=== PATIENT | male | born 1960 | race Caucasian/White ===

== ENCOUNTER 2019-11-02 02:14 | Emergency (ER) | payer OTHER, SELFPAY ==
[2019-11-02 02:16] VITALS: BP 172/94; PULSE 60; RESP 14; TEMP 36.2; O2SAT 94
[2019-11-02] MEDS: KETOROLAC 30 MG/ML VIAL (*BKC) IV PUSH (02:49)
--- NOTE | 2019-11-02 04:02 | ECG_ITS ---
Measurements Intervals [place] Rate: 53 P: -27 [place]: 144 QRS: -21 QRSD: 117 T: 29 QT: 434 QTc: 410 Interpretive Statements SINUS BRADYCARDIA INTRAVENTRICULAR CONDUCTION DELAY DELAYED PRECORDIAL R/S TRANSITION BASELINE ARTIFACT- I, II BORDERLINE ECG Electronically Signed On 11-02-2019 7:02:33 CDT by Socrates Fritz D.O.
--- NOTE | 2019-11-02 04:37 | ED.GENADULT ---
HPI - General Adult General Chief complaint: Extremity Injury, Upper Stated complaint: Left shoulder Time Seen by Provider: 11/02/19 02:32 History of Present Illness HPI narrative: Patient is a 58-year-old male who presents ER with muscle cramps and aches to his left trapezius and cervical paraspinal musculature. Reports has been having this intermittently over the last couple weeks. He has been going to a chiropractor for adjustments. Occasionally will get some tingling that goes down his left arm. No exertional component to it. Today he reports he is having really sharp cramps when he is driving home from work. He worked a 16-hour shift where he did not drink much water as were gone outside. No known trauma. Range of motion intact. No chest pain or chest pressure. Related Data Allergies Allergy/AdvReac Type Severity Reaction Status Date / Time No Known Allergies Allergy Verified 11/02/19 02:23 Review of Systems Review of Systems: All systems reviewed & are unremarkable except as noted in HPI and below Constitutional: Constitutional: Denies chills, Denies fever(s) and Denies weakness Cardiovascular: Cardiovascular: Denies chest pain and Reports radiating jaw, neck or arm pain Respiratory: Respiratory: Denies cough, Denies dyspnea and Denies wheezing Musculoskeletal: Musculoskeletal: Denies arthralgias, Denies joint swelling and Reports muscle cramps Neurologic: Denies focal weakness and Reports numbness PMFSH Past Medical History Medical History (Updated 11/02/19 @ 04:42 by Kevin Montanez MD) No pertinent past medical history Surgical History Surgical History (Updated 11/02/19 @ 04:39 by Kevin Montanez MD) Amputated finger Social History Social History (Updated 11/02/19 @ 04:39 by Kevin Montanez MD) Smoking status: Never smoker Gender identity (if verbalized by the patient): Male Exam Narrative: Exam Narrative: GENERAL: Well-appearing, well-nourished, and in no acute distress. HEAD: Normocephalic, atraumatic. ENT: Mucous membranes moist. NECK: Supple. Mild paraspinal muscular tenderness left side of near C2. Mild trapezius muscle tenderness. CHEST: Clear to auscultation. No respiratory distress. HEART: Regular rate and rhythm. Normal peripheral pulses. EXTREMITIES: Normal range of motion of the right upper extremity. SKIN: Warm, dry, no rash. NEURO: No focal deficits. Alert and oriented x3. Course Course Emergency Course: Pain mildly improved with Toradol and Valium. He has been using ibuprofen at home. Recommend continued anti-inflammatories and will add on a muscle relaxer prescription. He reports his pains are worse on Sundays when he works as a long shift. Suspect is worsened today due to the fact that he did not have much to drink. Encourage hydration at home as well. Vital Signs Vital signs: Vital Signs Temperature 97.2 F L 11/02/19 02:16 Pulse Rate 60 11/02/19 02:16 Respiratory Rate 14 11/02/19 02:16 Blood Pressure 172/94 H 11/02/19 02:16 Pulse Oximetry 94 11/02/19 02:16 Temperature 97.2 F L 11/02/19 02:16 Pulse Rate 60 11/02/19 02:16 Respiratory Rate 14 11/02/19 02:16 Blood Pressure 172/94 H 11/02/19 02:16 Pulse Oximetry 94 11/02/19 02:16 Medical Decision Making Vital Signs Vital Signs: Vital Signs Temperature 97.2 F L 11/02/19 02:16 Pulse Rate 60 11/02/19 02:16 Respiratory Rate 14 11/02/19 02:16 Blood Pressure 172/94 H 11/02/19 02:16 Pulse Oximetry 94 11/02/19 02:16 Temperature 97.2 F L 11/02/19 02:16 Pulse Rate 60 11/02/19 02:16 Respiratory Rate 14 11/02/19 02:16 Blood Pressure 172/94 H 11/02/19 02:16 Pulse Oximetry 94 11/02/19 02:16 ECG Data EKG #1: ECG completion date: 11/02/19 ECG completion time: 04:00 EKG Interpretation: bradycardia (53), sinus rhythm, no ectopy, normal QRS, normal QT and left axis Discharge Plan Discharge Clinical Impression: Muscle
[2019-11-02 04:58] VITALS: BP 146/84; PULSE 56; RESP 18; O2SAT 97
== END 2019-11-02 04:50 | disposition home or self-care (01) ==
PROVIDERS: Emergency Provider Emergency Medicine; PCP Emergency Medicine
DX: M62.838 Other muscle spasm (principal); Z89.029 Acquired absence of unspecified finger(s); R00.1 Bradycardia, unspecified; I45.9 Conduction disorder, unspecified
CPT/HCPCS: 93005; 96374; 96375; 99284; J1885; J3360

== ENCOUNTER 2019-11-07 08:15 | Emergency (ER) | payer OTHER, SELFPAY ==
[2019-11-07 08:27] VITALS: BP 135/82; PULSE 57; RESP 16; TEMP 36.2; O2SAT 100
--- NOTE | 2019-11-07 08:33 | ED.GENADULT ---
HPI - General Adult General Chief complaint: Neck Pain/Injury Stated complaint: Nerve pain, upper body Time Seen by Provider: 11/07/19 08:33 Source: patient Mode of arrival: ambulatory Limitations: no limitations History of Present Illness HPI narrative: 58-year-old male patient presents to the [facility] with complaints of left-sided neck pain. Patient states he he was seen at [facility] last Saturday for similar pain in which he was given some muscle relaxants and encouraged to take [id number] NSAIDs. Patient states that he did call his doctor on Saturday about the pain and he prescribed him a 3-day course of steroids and some Percocet for the pain. Patient states that the pain medicine that they have been giving him is not helped and continues to have pain. Patient denies any numbness or tingling down the arm, or lower extremities. Denies any loss of bowel or bladder control. Denies any specific injury to the neck that he is aware of. Related Data Allergies Allergy/AdvReac Type Severity Reaction Status Date / Time No Known Allergies Allergy Verified 11/02/19 02:23 Review of Systems Review of Systems: Narrative: CONSTITUTIONAL: Denies fever, chills, or sweats. EYES: Denies visual changes, redness, or discharge. ENT: Denies rhinorrhea, congestion, sore throat, or otalgia. CARDIOVASCULAR: Denies chest pain, palpitations, or edema. RESPIRATORY: Denies cough or dyspnea. GASTROINTESTINAL: Denies abdominal pain, nausea, vomiting, or diarrhea. GENITOURINARY: Denies dysuria or hematuria. SKIN: Denies rash or itching. MUSCULOSKELETAL: Denies back pain, joint pain, or myalgia. Positive left-sided neck pain x1 week NEUROLOGIC: Denies headache, numbness, or weakness. PSYCHIATRIC: Denies anxiety or depression. PMFSH Past Medical History Medical History (Updated 11/07/19 @ 08:44 by ALICE Galaviz) No pertinent past medical history Ocular melanoma Left Surgical History Surgical History (Updated 11/02/19 @ 04:39 by Kevin Montanez MD) Amputated finger Social History Social History (Updated 11/02/19 @ 04:39 by Kevin Montanez MD) Smoking status: Never smoker Gender identity (if verbalized by the patient): Male Exam Narrative: Exam Narrative: GENERAL: Well-appearing, well-nourished, and in no acute distress. HEAD: Normocephalic, atraumatic. EYES: PERRLA and EOMI. ENT: Nares clear, no rhinorrhea or epistaxis. Mucous membranes moist. NECK: Supple, no lymphadenopathy. No surface trauma, no soft tissue or muscle tenderness or spasm noted. Trachea midline. No subq emphysema or crepitus. No sarbjit tenderness, step-offs or deformity to firm Palpation at posterior midline. FROM without limitation or pain, normal flexion, extension,Lateral bending, rotation, and axial load. Patient has specific pain on palpation to the top of the left shoulder in the middle that extends upward towards the left lateral neck. Patient does have excellent range of motion noted CHEST: Clear to auscultation. No respiratory distress. HEART: Regular rate and rhythm. No murmur heard. Normal peripheral pulses. ABDOMEN: Soft, nontender, nondistended, normal active bowel sounds. EXTREMITIES: Normal range of motion. No edema. SKIN: Warm, dry, no rash. NEURO: Alert and oriented ?-4, GCS 15. Cranial nerves II through XII grossly intact. No focal neurological deficits. Normal muscle strength and tone. Normal deep tendon reflexes. Negative Babinski, normal finger to nose coordination he had normal heel to santana glide. Speech is clear. Normal gait. Negative Romberg and no pronator drift Course Vital Signs Vital signs: Vital Signs Temperature 36.2 C L 11/07/19 08:27 Pulse Rate 57 L 11/07/19 08:27 Respiratory Rate 16 11/07/19 08:27 Blood Pressure 135/82 11/07/19 08:27 Pulse Oximetry 100 11/07/19 08:27 Temperature 36.2 C L 11/07/19 08:27 Pulse Rate 57 L 11/07/19 08:27 Respiratory Rate 16 11/07/19 08:27 Blood Pressure 1
== END 2019-11-07 08:55 | disposition home or self-care (01) ==
PROVIDERS: Emergency Provider Nurse Practitioner Family; PCP Emergency Medicine
DX: S16.1XXA Strain of muscle, fascia and tendon at neck level, initial encounter (principal); X58.XXXA Exposure to other specified factors, initial encounter; Z85.840 Personal history of malignant neoplasm of eye
CPT/HCPCS: 99213; G0463

== ENCOUNTER 2024-06-12 07:59 | Outpatient (CLI) | payer OTHER, SELFPAY ==
--- NOTE | ~2024-06-12 | MR_ITS ---
MRI of the left knee Clinical history: Pain Technique: Coronal proton density and proton density-weighted images, sagittal proton-density and T2 fat-sat images, and axial proton-density fat-saturated images were acquired. Findings: The anterior and posterior cruciate ligaments are intact. Medial collateral ligament and th e lateral collateral ligament complex are intact. Popliteus tendon is intact. Medial and lateral menisci are intact, without evidence of tear. There is mild to moderate chondromalacia along the lateral patellar facet extending to the apex, with focal areas of subchondral cystic change present. There is advanced chondromalacia of the femoral tr ochlea at the central to lateral aspect inferiorly, with subchondral cystic change present. Articular cartilage in the medial and lateral compartments is well preserved. Extensor mechanism is intact. No significant joint effusion or Cuba's cyst. Impression: Degenerative change of the patellofemoral compartment, as detailed above. Reviewed, dictated and finalized at [facility]. Impression: Degenerative change of the patellofemoral compartment, as detailed above.
--- NOTE | ~2024-06-12 | MR_ITS ---
MRI of the right hip Clinical history: Pain Technique: Coronal T1-weighted, T2-weighted, and proton-density fat-sat images, and axial T1-weighted and proton-density fat-sat images were acquired through the pelvis. Coronal T2-weighted images and c oronal, axial, and sagittal proton-density fat-sat images were acquired through the right hip. Findings: There is no fracture or avascular necrosis of either hip. No suspicious marrow edema or oth er suspicious marrow signal seen in the visualized osseous structures. There is diffuse moderate hillary dromalacia of both hip joints. There is focal subchondral cystic change in the right acetabulum and s uperolateral right femoral head. No joint effusion. No definite acetabular labral tear. Because musculature about the pelvis and right hip is intact. No muscle atrophy or edema. Visualized tendons are intact. No soft tissue mass or fluid collection. No evidence for bursitis. IMPRESSION: Moderate degenerative change of both hip joints, right worse than left. Reviewed, dictated and finalized at location .
== END 2024-06-12 08:00 | disposition home or self-care (01) ==
LOC: MICIMG 07:59
PROVIDERS: PCP Emergency Medicine; Visit Provider Emergency Medicine
DX: M16.0 Bilateral primary osteoarthritis of hip (principal); M17.12 Unilateral primary osteoarthritis, left knee
CPT/HCPCS: 73721

== ENCOUNTER 2024-09-21 01:12 | Day surgery (SDC) | payer OTHER, SELFPAY ==
[2024-09-07 15:36] VITALS: BMI 27.6
--- OUTSIDE RECORDS SUMMARY | 2024-09-21 01:15 | XMS_ITS | Continuity of Care Document ---
Author Organization [facility] Address [address] [place] [address] Phone Care Team Providers Care Appliquer Name Role Phone Dio Loomis MD Unavailable Unavailable Allergies, Adverse Reactions, Alerts Substance Reaction Status Criticality No Known Drug Allergies Active No I nformation Procedures Procedure Date Rating Letter Rating Letter Office/outpatient visit,est, mod 2011 Supplemental Report Office/outpatient visit,est, mod 2011 Supplemental Report Office/outpatient visit,est, low 2011 Supplemental Report Office/outpatient visit,est, low 2011 Inject sngl/traffic and transport planner trig pt 3+ msclgrp Office/outpatient visit,est, mod 2011 Supplemental Report Office consultation, moderate 2 Inject nerve block, grtroccipital Inject nerve block, peripheral 12 Inject sngl/traffic and transport planner trig pt 1-2 msclgrp Office/outpatient visit,est, low 2011 Supplemental Report Office/outpatient visit,est, mod 2011 Supplemental Report Office/outpatient visit,est, mod 2011 Supplemental Report Office/outpatient visit,est, low 2011 Supplemental Report Office/outpatient visit,est, low 2011 Supplemental Report Office/outpatient visit,est, mod 2011 Supplemental Report Office consultation, low MRI upr extr joint, w/o contrast 2011 [place] [facility] [place] Advance Directives Directive Yes / No Effective Date File Name No Information Encounters Encounter Description Practice Location Reason(s) For Visit Diagnoses Date Provider Providers Copied on Encounter Rating Letter [facility], [address] [address], [place], [place], [id number], tel:[phone] [facility] No Information 3 Ebonie Dio. [address] [facility] [address], [place], [place], [id number] , [place]. tel:[phone] Rating Letter [facility], [address] [address], [place], [place], [address], [place] tel:[phone] [facility] No Information 2 Marley Gonzalez. [address] [address], [place], [place], [address] , [place]. tel:[phone] Office/[place]pat ient visit[place] [facility] [place] [facility], [address] [address], [place], [place], [address], [place] tel:[phone] [facility] Cervical StrainCERVICAL SPONDYLOSIS 2 Marley Gonzalez. [address], [id number] , [place]. tel:[phone] Referring Provider: Lisa Gresham, [address] [facility], [place], [address] . tel:[phone] Office/outpat ient visit,[facility], [facility] [place] [facility], [address], [id number], [place] tel:[phone] [facility] SPASM OF MUSCLECervical Strain 2 Marley Gonzalez. [address], [id number] , [place]. tel:[phone] Referring Provider: Lisa Gresham, [address] [facility], [place], [address] . tel:[phone] Office/outpat ient visit,est, low [facility], [address] [facility] [address], [place], [place], [address], [place] tel:[phone] [facility] FX CARPAL BONE NOS-CLOSE Sep- 2 Ebonie Dio. [address], [place], [place], [address] , [place]. tel:[phone] Office/outpat ient visit,est, [facility] [place] [facility], [address] [address], [place], [place], [address], [place] tel:[phone] [facility] MYALGIA AND MYOSITIS NOS Sep-0 2 Faubel Tramaine er. [address] [facility] [address], [place], [place], [id number] , [place]. tel:[phone] Office/[place]pat ient visit[place]est, [facility] [place] [facility], [address] [address], [place], [place], [address], [place] tel:[phone] [facility] SPASM OF MUSCLECervical Strain Sep-0 2 Marley Gonzalez. [address] [facility] [address], [place], [place], [address] , [place]. tel:[phone] Referring Provider: Lisa Gresham, [address] [facility], [place], [address] . tel:[phone] Office consultation, moderate [facility], [address] [address], [place], [place], [address], [place] tel:[phone] [facility] CERVICAL SYNDROME NEC Aug 2 Faubel Tramaine er. [address] [facility] [address], [place], [place], [address] , [place]. tel:[phone] Referring Provider: Lisa Gresham, [address] [facility] [address] [facility], [place], [address] . tel:[phone] Office/outpat ient visit,est, [facility] [place] [facility], [address] [address], [place], [place], [address], [place] tel:[phone] [facility] FX CARPAL BONE NOS-CLOSE Oct- 2 Ebonie Wharton. [address] [facility] [address], [place], [place], [address] , [place]. tel:[phone] Referring Provider: Lisa Gresham, [facility] [address], [place], [address] . tel:[phone] Office/outpat ient visit,[facility], [facility] [place] [facility], [facility] [address], [place], [place], [address], [place] tel:[phone] [facility] Cervical StrainSPASM OF MUSCLE Oct- 2 Marley Gonzalez. [address] [address], [place], [place], [address] , [place]. tel:[phone] Referring Provider: Lisa Gresham, [facility] [address], [place], [address] . tel:[phone] Office/outpat ient visit,[facility], [facility] [place] [facility], [address] [place] [address], [place], [place], [address], [place] tel:[phone] [facility] Cervical Strain Oct-0 [address] Marley Gonzalez. [address] [place] [address], [place], [place], [address] , [place]. tel:[phone] Referring Provider: Lisa Gresham, [address] [address], [place], [address] . tel:[phone] Office/outpat ient visit,est, [facility] [place] [facility], [address] [place] [address], [place], [place], [address], [place] tel:[phone] [facility] FX CARPAL BONE NOS-CLOSE 2 Strecker Dio. [address] [facility] [address], [place], [place], [address] , [place]. tel: [phone] Referring Provider: Lisa Gresham, [address] [address], [place], [address] . tel:[phone] Office/outpat ient visit,est, low [facility], [address] [facility] [address], [place], [place], [id number], [place] [phone] [facility] FX CARPAL BONE NOS-CLOSE 2 Strecker Dio. [address] [place] [address], [place], [place], [address] , [place]. tel: [phone] Referring Provider: Lisa Gresham, [facility] [address], [place], [address] . tel:[phone] Office/outpat ient visit,est, [facility] [place] [facility], [address] [address], [place], [place], [address], [place] tel:[phone] [facility] Cervical Strain 2 Marley Gonzalez. [address] [place] [address], [place], [place], [address] , [place]. tel:[phone] Referring Provider: Lisa Gresham, [address] [facility] [address] [facility], [place], [address] . tel:[phone] Office consultation, [facility] [place] [facility], [address] [address], [place], [address], [place] tel:[phone] [facility] FX CARPAL BONE NOS-CLOSE 2 Strecker Dio. [address] [place] [address], [address] [address], [place], [place], [address] , [place]. tel:[phone] Referring Provider: Lisa Gresham, [address], [place], [address] . tel:[phone] [facility], [address] [facility] [address], [place], [place], [address], [place] tel:[phone] [facility] JOINT EFFUSION-FOREAR MEDEMALOC PRIM OSTEOART-FORARM 2 [facility]. [address] [facility], [place], [place], [address] , [place]. [phone] Referring Provider: Lisa Gresham, [address] [facility] [address], [place], [address] . tel:[phone] Office/outpat ient visit,[facility], [address] [facility] [address], [place], [place], [address], [place] tel:[phone] [facility] Cervical StrainLumbar Sprain Or StrainSPRAIN OF WRIST NOSSKIN SENSATION DISTURB 2 Marley Gonzalez. [address] [facility], [place], [place], [address] , [place]. tel:[phone] Family History Family Member Type Diagnosis Age At Onset No Information Payers Payer name Insurance type Covered green party ID Authoriza tion(s) [employer] [id number] Social History Type Description Quantity Date Captured Comments Sex Male Smoking Status No Information Chief Complaint And Reason For Visit No Information Reason For Referral Reason For Referral No Information History Of Present Illness Encounter Date Complaint History Of Prese nt Illness No Information Functional Status Date Functional Assessmen t No Information Instructions Date Instruction Additional Infor mation No Information Assessments Type Assessment Date No Information Patient Care Teams Name Effective Dates (start - stop) Status Members No Information
--- OUTSIDE RECORDS SUMMARY | 2024-09-21 01:15 | XMS_ITS | Continuity of Care Document ---
Author Organization [facility] Address [address] [place] [address] Phone Care Team Providers Care Lecturer Of Portuguese Name Role Phone Krista Haas PT Unavailable Unavailable Procedures Procedure Date Therapeutic Activities Manual Therapy Therapeutic Exercise Neuromuscular Re-Ed Manual Therapy Therapeutic Exercise Neuromuscular Re-Ed Therapeutic Activities Therapeutic Activities Therapeutic Exercise Neuromuscular Re-Ed Manual Therapy Therapeutic Activities Manual Therapy Therapeutic Exercise Neuromuscular Re-Ed Therapeutic Activities Neuromuscular Re-Ed Therapeutic Exercise Manual Therapy Therapeutic Activities Neuromuscular Re-Ed Therapeutic Exercise Manual Therapy Therapeutic Activities Manual Therapy Therapeutic Exercise Neuromuscular Re-Ed Neuromuscular Re-Ed Therapeutic Activities Therapeutic Exercise Manual Therapy PT Evaluation Low Complexity Manual Therapy Therapeutic Exercise Neuromuscular Re-Ed Advance Directives Directive Yes / No Effective Date File Name No Information Encounters Encounter Description Practice Location Reason(s) For Visit Diagnoses Date Provider Providers Copied on Encounter [facility], [address], [place], [place], [id number], tel:[phone] [place] No Information Oct-0 5-202 0 Threlkeld Krista. . Referring Provider: Ozzy [address], [place], [address]. tel:[phone] [place] [address] [address], [place], [place], [id number], tel:[phone] [place] No Information Sep-2 9-202 0 Threlkeld Krista. . Referring Provider: Ozzy [address], [place], [address]. tel:[phone] [place] [address] [address], [place], [place], [id number], [place] tel:[phone] [place] No Information Sep-2 4-202 0 Makler Luke. . Referring Provider: Ozzy [address], [place], [place], [facility]. tel:[phone] [place] [address] [address], [place], [place], [id number], [place] tel:[phone] [place] No Information Sep-2 2-202 0 Threlkeld Krista. . Referring Provider: Ozzy [address], [place], [address]. tel:[phone] [place] [address] [address], [place], [place], [id number], [place] tel:[phone] [place] No Information Sep-1 8-202 0 Threlkeld Krista. . Referring Provider: Ozzy [address], [place], [address]. tel:[phone] [place] [address] [address], [place], [place], [id number], [place] tel:[phone] [place] No Information Sep-1 5-202 0 Threlkeld Krista. . Referring Provider: Ozzy [address], [place], [address]. tel:[phone] [place] [address], [id number], tel:[phone] [place] No Information Sep-0 8-202 0 Threlkeld Krista. . Referring Provider: Robin Srivastava, [address] [facility] [address], [place], [address]. tel:[phone] [facility], [address], [id number], tel:[phone] [place] No Information Sep-0 3-202 0 Threlkeld Krista. . Referring Provider: Ozzy [address] [facility] [address], [place], [address]. tel:[phone] [place] [address], [id number], tel:[phone] [place] No Information Sep-0 1-202 0 Threlkeld Krista. . Referring Provider: Robin Srivastava, Oz[address] [facility], [place], [address]. tel:[phone] Family History Family Member Type Diagnosis Age At Onset No Information Payers Payer name Insurance type Covered libertarian ID Elio denny(s) Yasmeen [id number] Social History Type Description Quantity Date Captured Comments Sex Male Smoking Status No Information Chief Complaint And Reason For Visit No Information Reason For Referral Reason For Referral No Information History Of Present Illness Encounter Date Complaint History Of Prese nt Illness No Information Functional Status Date Functional Assessmen t No Information Instructions Date Instruction Zelda bauer Giving encouragement to exercise Related to Overweight Assessments Type Assessment Date No Information Patient Care Teams Name Effective Dates (start - stop) Status Members No Information
--- OUTSIDE RECORDS SUMMARY | 2024-09-21 01:15 | XMS_ITS | Clinical Summary ---
Author Organization [facility] Address [address] [place] [address] Care Team Providers Care Patent Attorney Name Role Phone Unavailable Primary Care Provider Unavailabl e Source Comments [facility],non-owned Affiliates and Associated Physician Practices is amultiple site organization consisting of ambulatory clinics and hospital sitesin [place], [place], [place] and [place]. This disclosure is being madepursuant to the Care Everywhere program and may not contain all information available regarding this patient. 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 Gender Identity Not on file Sexual Orientation Not on file Plan of Treatment Health Maintenance Due Date Last Done Comments COLOGUARD (AGES 45-75) - COL ON CA SCREENING 1958 COLON MONITORING 1958 COLONOSCOPY - COLON CA SCREENING 1958 CT COLONOGRAPHY - COLON CA SCREENING 1958 Colorectal Cancer Screening 1958 FIT - COLON CA SCREENING 1958 FLEX SIG - COLON CA SCREENING 1958 LIPID TESTING 1958 HIV SCREENING 1973 HEPATITIS C SCREENING 12/14/1976 DTAP/TDAP/TD VACCINES (1 - Tdap) 1977 PNEUMOCOCCAL VACCINE 50+ (1 of 1 - PCV) 2008 ZOSTER VACCINE (1 of 2) 2008 COVID-19 VACCINE ( - 2023-2 5 season) 2023 DEPRESSION SCREENING 03/11/2024 INFLUENZA VACCINE (#1) 2024 Respiratory Syncytial Virus (RSV) Vaccine Pt: or over 60 yrs (1 - 1-dose 75+ series) 2033 HEPATITIS B VACCINE Aged Out No longe r eligible based on patient's age to complete this topic HIB VACCINE Aged Out No longer eligi ble based on patient's age to complete this topic HPV VACCINE Aged Out No longer eligi ble based on patient's age to complete this topic MENINGOCOCCAL (Group B) VACC INE SHARED DECISION-MAKING Aged Out No longer eligibl e based on patient's age to complete this topic MENINGOCOCCAL GROUPS A/C/Y/W VACCINE Aged Out No longer eligible b ased on patient's age to complete this topic Insurance
--- OUTSIDE RECORDS SUMMARY | 2024-09-21 01:16 | XMS_ITS | Referral Summary ---
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 Assessment & Plan (09/17/2024 2:50 PM CDT): S/P EPR 2009. Oncology has released follow up. Stable today. Recommend observation. Return 1-2 years for DFEx OU, fundus photo OS.. Assessment & Plan (03/14/2023 4:11 PM STORAGE ADMINISTRATOR): S/P EPR 2009. Oncology has released follow up. Stable today. Recommend observation. Return 1-2 years for DFEx OU, fundus photo OS. Assessment & Plan (09/06/2022 3:49 PM CDT): S/P EPR 2009. Oncology has released follow up last year. Stable today. Recommend observation. Return 1-2 years for DFEx OU, fundus photo OS. Assessment & Plan (07/20/2021 2:14 PM CDT): S/P EPR 2009. Follows with oncology here for monitoring, last seen 3-4 weeks ago, everything stable. Stable today. Recommend observation. Return 12-15 months for DFEx OU, fundus photo OS. Assessment & Plan (04/28/2020 2:45 PM STORAGE ADMINISTRATOR): Stable today, recommend observation. S/p EPR 2009. Assessment & Plan (07/10/2018 10:11 AM CDT): Stable today, recommend observation. Assessment & Plan (01/08/2018 11:21 AM CDT): Stable today, recommend observation. Assessment & Plan (09/16/2017 10:07 AM CDT): Stable today, recommend observation. See oncology for metastatic screening as scheduled. The fluid previously noted over the tumor appears to be regressing, I have recommended observation. 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 Vision remains stable. Immunizations Immunization Administration Dates Next Due Allen (J&J) SARS-CoV-2 Vaccination 05/15/2020 Social History Tobacco Use Types Packs/Day Years Used Date Smoking Tobacco: Never Smokeless Tobacco: Never Sex and Gender Information Value Date Recorded Sex Assigned at Not on file Legal Sex Male 12:36 AM STORAGE ADMINISTRATOR Gender Identity Not on file Sexual Orientation Not on file Last Filed Vital Signs Vital Sign Reading Time Taken Comments Blood Pressure 152/89 05/28/2022 8:48 AM CDT Pulse 52 05/28/2022 8:48 AM CDT Temperature 36.4 C (97.5 F) 05/28/2022 8:48 AM CDT Respiratory Rate 18 05/28/2022 8:48 AM CDT Oxygen Saturation 98% 05/28/2022 8:48 AM CDT Inhaled Oxygen Concentration - - Weight 92.1 kg (203 lb) 05/28/2022 8:48 AM CDT Height 180.3 cm (5' 11) 11/01/2022 3:26 PM CDT Body Mass Index 28.42 05/28/2022 8:48 AM CDT Plan of Treatment Not on file Procedures Procedure Name Priority Date/Time Associated Diagnosis Comments FUNDUS PHOTOS/FAF - OS - LEFT EYE Routine 09/17/2024 2:50 PM CDT Choroidal malignant melanoma, left (HCC) from Last 3 Months Results * Fundus Photos/FAF - OS - Left Eye (09/17/2024 2:50 PM CDT) Anatomical Region Laterality Modality Head Fundus Photograp hy Narrative 09/17/2024 2:50 PM CDT Quality was good. Progression has been stable. Notes CMT OS, stable.. us Liz Juarez MD OPHTH PHOTOGRAPHY F inal Result from Last 3 Months Insurance CIGNA IB CIGNA IB CIGNA Care Teams Civil Clerk Relationship Specialty Start Date End Date Robin Srivastava MD [address] [address] PCP - General 04/19/20
--- OUTSIDE RECORDS SUMMARY | 2024-09-21 01:16 | XMS_ITS | Patient Health Record ---
Author Organization [facility] Address [address] [facility] [address]. [address] [place] [address] Care Team Providers Care Assistant Property Manager Name Role Phone Dio Yusuf MD Primary Care Provider Narayan Contreras Unavailable [phone] Reason For Referral No Information Plan Of Treatment No Information Insurance Providers Payer Name Payer Address Payer Phone Subscriber Number Group Number Insured Name Patient Relationship to Insured Coverage Start Date Coverage End Date Wong Rule [facility] [address] [address] [place] [address] [id number] Tripp Campos Self - patient is the insured 6 Eb Fabian [address] [place] [address] [id number] Tripp Campos Self - patient is the insured 7
--- OUTSIDE RECORDS SUMMARY | 2024-09-21 01:16 | XMS_ITS | Encounter Summary ---
Author Organization [facility] Address [address] [place] [address] Phone Care Team Providers Care Assistant Produce Manager Name Role Phone Dio Yusuf MD Primary Care Provider [phone] Samuel Steven MD Primary Care Provider Dio Yusuf MD Primary Care Provider [phone] Dio Yusuf MD Primary Care Provider [phone] Samuel Steven MD Primary Care Provider [phone] Robin Srivastava MD Primary Care Provider [phone] Encounter Details Date Type Department Care Team (Late st Contact Info) Description 03/06/2016 Orders Only [facility] Josette Mariee MD [address] DEPT OPHTHALMOLOGY, [address] [address] Social History Tobacco Use Types Packs/Day Years Used Date Smoking Tobacco: Never Assessed Sex and Gender Information Value Date Recorded Sex Assigned at Not on file 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 Gender Identity Not on file Sexual Orientation Not on file documented as of this encounter Plan of Treatment Not on file documented as of this encounter Procedures Procedure Name Priority Date/Time Associated Diagnosis Comments PROCEDURE REPORT 03/06/2016 documented in this encounter Results * PROCEDURE REPORT (03/06/2016) us Josette Mariee MD NURSING COMMUNICATION Fi nal Result documented in this encounter Visit Diagnoses Not on filedocumented in this encounter Care Teams Assistant Produce Manager Relationship Specialty Start Date End Date Dio Yusuf MD [address] [place] [address] PCP - General 04/24/16 07/12/16 Samuel Steven MD [address] [place] [address] PCP - General 07/13/16 07/18/16 Dio Yusuf MD [address] [place] [address] PCP - General 07/23/16 04/18/20 Dio Yusuf MD [address] [place] [address] PCP - General 07/19/16 07/19/16 Samuel Steven MD [address] [place] [address] PCP - General 07/20/16 07/22/16 Robin Srivastava MD [address] [place] [address] PCP - General 04/19/20 documented as of this encounter
--- OUTSIDE RECORDS SUMMARY | 2024-09-21 01:16 | XMS_ITS ---
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 Assessment & Plan (09/17/2024 2:50 PM CDT): S/P EPR 2009. Oncology has released follow up. Stable today. Recommend observation. Return 1-2 years for DFEx OU, fundus photo OS.. 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 Oncology has released follow [...] OS. Assessment & Plan (04/28/2020 2:45 PM AGRICULTURAL EDUCATION PROFESSOR): Stable today, recommend observation. S/p EPR 2009. [...] manifestation of radiation retinopathy. Vision remains stable. Current Treatment and Therapy Plans No current plan information found. Past Treatment and Therapy Plans No past plan information found. Lifetime Dose Tracking * Chemical Lifetime Dose Automatic Entry Manual Entr y Fluoro Time 0.5 minutes 0.5 minutes 0 minutes DLP 5,901 mGycm 5,901 mGycm 0 mGycm
--- OUTSIDE RECORDS SUMMARY | 2024-09-21 01:16 | XMS_ITS | Continuity of Care Document ---
Author Organization [facility] Address [address] [place] [place] [address] [place] [address] Phone Care Team Providers Care Senior Payroll Manager Name Role Phone Robin Srivastava MD Unavailable Unavailable Allergies, Adverse Reactions, Alerts Substance Reaction Status Criticality No Known Allergies Active No Inform ation Medications Medication Instructions Dosage Effective Dates (start - stop) Status Comments Ativan 0.5 mg tablet take 1 Tablet by oral route 1/2 hour before MRI procedure as needed - Active avoid driving or operate machine Procedures Procedure Date PREV VISIT, EST, 65 & OVER OFFICE/OUTPATIENT VISIT, EST OFFICE/OUTPATIENT VISIT, EST OFFICE/OUTPATIENT VISIT, EST PREV VISIT, EST, AGE 40-64 OFFICE/OUTPATIENT VISIT, EST OFFICE/OUTPATIENT VISIT, EST OFFICE/OUTPATIENT VISIT, EST OFFICE/OUTPATIENT VISIT, EST PREV VISIT, NEW, AGE 40-64 Advance Directives Directive Yes / No Effective Date File Name No Information Encounters Encounter Description Practice Location Reason(s) For Visit Diagnoses Date Provider Providers Copied on Encounter [facility], [address], [place], [place], [address], [place] tel:[phone] [facility] No Information 5 Atif Kelly. [address], [place], [place], [address] , [place]. tel:[phone] Referring Provider: Robin Srivastava, [address], [place], [place], [address]. tel:[phone] [facility], [address], [place], [place], [address], [place] tel:[phone] [facility] No Information 5 Atif Kelly. [address], [place], [place], [address] , [place]. tel:[phone] Referring Provider: Robin Srivastava, [address], [place], [place], [address]. tel:[phone] PREV VISIT, EST, 65 & OVER [facility], [address], [place], [place], [address], [place] tel:[phone] [facility] pain1 (chief complaint) hip pain1 (chief complaint) colon polyp1 (chief complaint) Pain in left kneePain in right hipEncounter for general adult medical exam w abnormal findingsPolyp of colonGeneralized Anxiety Disorder 5 Atif Kelly. [address], [place], [place], [address] , [place]. tel:[phone] Referring Provider: Robin Srivastava, [address], [place], [place], [address]. tel:[phone] OFFICE/OUTPA TIENT VISIT, [facility], [address], [place], [place], [address], [place] tel:[phone] [facility] back pain1 (chief complaint) Muscle spasm of back 4 Atif Kelly. [address], [place], [place], [address] , [place]. tel:[phone] Referring Provider: Robin Srivastava, [address], [place], [place], [address]. tel:[phone] OFFICE/OUTPA TIENT VISIT, [facility], [address], [place], [place], [address], [place] tel:[phone] [facility] COVID1 (chief complaint) Viral infection 3 Atif Kelly. [address], [place], [place], [address] , [place]. tel:[phone] Referring Provider: Robin Srivastava [address], [place], [place], [address]. tel:[phone] PREV VISIT, EST, AGE 40-64 [facility], [address], [place], [place], [address], [place] tel:[phone] [facility] Medicine physical (chief complaint) Encounter for general adult medical exam w abnormal findingsGeneralized Anxiety DisorderPain in right shoulderPolyp of colon 3 Atif Kelly. [address], [place], [place], [address] , [place]. tel:[phone] Referring Provider: Ozzy Travis [address], [place], [place], [address]. tel:[phone] OFFICE/OUTPA TIENT VISIT, EST [facility], [address], [place], [place], [address], [place] tel:[phone] [facility] neck pain1 (chief complaint) ocular melanoma1 (chief complaint) Malignant neoplasm of left corneaOther spondylosis, cervical region 0 Atif Kelly. [address], [place], [place], [address] , [place]. tel:[phone] Referring Provider: Robin Srivastava [address], [place], [place], [address]. tel:[phone] OFFICE/OUTPA TIENT VISIT, EST [facility], [address], [place], [place], [address], [place] tel:[phone] [facility] neck pain1 (chief complaint) TorticollisOther muscle spasm 0 Atif Kelly. [address], [place], [place], [address] , [place]. tel:[phone] Referring Provider: Ozzy Travis [address], [place], [place], [address]. tel:[phone] OFFICE/OUTPA TIENT VISIT, EST [facility], [address], [place], [place], [address], [place] tel:[phone] [facility] Medicine muscle pain1 (chief complaint) colon polyp1 (chief complaint) Polyp of colonTorticollis 0 Atif Kelly. [address], [place], [place], [address] , [place]. tel:[phone] Referring Provider: Ozzy Travis [address], [place], [place], [address]. tel:[phone] PREV VISIT, NEW, AGE 40-64 [facility], [address], [place], [place], [address], [place] tel:[phone] [facility] Physical (chief complaint) Encntr for general adult medical exam w/o abnormal findings 9 Atif Kelly. [address], [place], [place], [address] , [place]. tel:[phone] Referring Provider: Ozzy Travis [address], [place], [place], [address]. tel:[phone] Family History Family Member Type Diagnosis Age At Onset Sister Problem (finding) hodgkin Father Problem (finding) hodgkin lymphoma (Cause Of ) 35 Mother Problem (finding) Alive and well Payers Payer name Insurance type Covered democrat ID Authoriza tion(s) No Information Social History Type Description Quantity Date Captured Comments Alcohol Use Details Unknown Caffeine Use Details Unknown Tobacco Use Status No Information Smoking Status No Information Sex Male Chief Complaint And Reason For Visit No Information Plan Of Treatment Date Type Action Status Goal Special diet education compl eted Referral Ordered: CORAL MCMANUS -[facility]opathic Physicians : Orthopaedic Surgery (related to Pain in left knee) ordered Referral Referred To: CORAL MCMANUS [address] [place], [place], [phone] Ordered: Referrals: [facility]opathic [facility] Osteopathic Physicians : Orthopaedic Surgery. CORAL MCMANUS. Evaluate and treat ordered Referral Ordered: MRI JNT OF LWR EXTRE W/O DYE Left knee ordered Referral Ordered: COLONOSCOPY AND BIOPSY ordered Referral Ordered: MRI JNT OF LWR EXTRE W/O DYE Right hip ordered Referral Ordered: Physical Therapy (related to Muscle spasm of back) ordered Referral Ordered: MRI NECK SPINE W/O DYE ordered Referral Ordered: Physical Therapy (related to Other muscle spasm) ordered Referral Ordered: CERVICAL SPINE XRAY 7 VIEWS ordered Referral Referred To: Physical Therapy Ordered: Referrals: Physical Therapy. Evaluate and treat ordered History Of Present Illness Encounter Date Complaint History Of Prese nt Illness pain1 Pt c/o acute ons et of left foot pain between 1st and 2nd toe and lateral left foot pain for two weeks ,Pt denies any injury Pt denies any numbness or tingling Pt denies any calf pain Pt denies any back pain Pt denies any swelling Pt also notices acute onset of left knee pain for one week. Pt feels something swelling behind left knee and pushing the area causes a sharp pain down to left foot. Pt denies any recent travel or bed rest. 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 Pt also sometimes notices acute left knee pain when he walks and he feels left knee about to give out when he twists left knee. Pt also notices left knee pain when he tries to bend his left knee Pt denies any back pain or sciatica Pt denies any loss of bowel or bladder control or saddle area paresthesia. Pt denies any sob or chest pain colon polyp1 Pt has history o f tubular adenoma on colonoscopy 2018 Pt never did follow up colonoscopy last year. Pt denies any GI issue hip pain1 Pt c/o chronic r ight hip pain for several years Pt denies any back pain or sciatica .Pt denies any injury Pt denies any right sciatica. back pain1 pt c/o acute low back pain and spasm since 3 days ago. His grandon tried to jump on him and he bent forward and felt acute low back pain Pt denies any sciatica Pt denies any loss of bowel or bladder control or saddle area paresthesia Pt notices persistent low back spasm and difficulty walking and lying down Pt tried heating and ice and OTC meds but did not help Pt also undergo chiropractice adjustment which did not help yesterday. COVID1 Pt c/o acute ons et of running nose, headache, sinus congestion, myalgia since 2 days ago. Pt denies any cough or sob .Pt denies any chest pain Pt feels tired but no fever. Pt denies any sore throat. Pt denies any Gi symptoms. Pt tested positive for COVID at home yesterday. Pt got original one COVID shot two years ago from [facility] but no boosters. physical Pt needs annual physical pt has chronic right shoulder pain for several years .Pt is seeing ortho who ordered arthrogram but he is severely claustrophobic and he feels very anxious about getting into a closed MRI this Saturday .Pt tried valium in the past to try to deal with claustrophobia but did not help. Pt has very hard time falling asleep at night in anticipation of his pending closed MRi. Pt wants to get MRi done under anesthesia but it is not available at this time. neck pain1 Pt c/o rather se sonia left side neck pain for 4-5 weeks. Pt denies any injury. Pt has been to ER multiple times for neck pain Pt was tried on flexeril. robaxin and prednisone and OTC NSAID which none helped. Pt has persistent left neck spasm. Pt notices mild radiation to left upper shoulder but not to left arm Pt denies any finger discoloration or cold extremity or left arm weakness. Pt tried PT for 4 sessions which made the pain worse Pt has hard time sleep due to above symptoms. Pt wants MRi. Pt want open sitting MRi due to claustrophobia Pt wants some medication to calm his nerve before the MRI. 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 Pt denies any injury Pt denies any radiculopathy or left arm weakness .Pt denies any headache. Pt denies any vision change or any speech issue . Pt tried flexeril, prednisone which did not help pt has been to ER and urgent care multiple times. Pt denies nay neck injury colon polyp1 Pt had colonosco py two years ago which showed polyp. Pt not sure what type of polyp. Pt denies any bleeding muscle pain1 Pt c/o acute ons et of left side paracervical muscle spasm for two weeks. Pt denies any injury Pt denies any headache Pt denies any radiculopathy. Pt denies any weakness or numbness or tingling. Pt denies any cervical spine pain. Pt denies any shoulder joint pain or ROM issue .Pt denies any stiff neck. Pt denies any rash. Pt went to ER last night and he got some valium injection and was sent home with cyclobenzaprine. Pt has been taking ibuprofen PRn. Pt states that flexeril is helping also. Pt states that turning his head towards left brings the pain on. Pt has 3/10 pain. Physical Pt needs annual physical. Pt has history of left macular melanoma s/p surgery 2009. Pt still sees oncologist and rehanger Pt denies any eye issue. pt overall feels well. Pt does not take any medication. Pt denies any active complaints Instructions Date Instruction Additional Infor lizette Increase activity. Related to En cntr for general adult medical exam w/o abnormal findings Special diet education Related t o Body mass index (BMI) 28.0-28.9, adult Assessments Type Assessment Date No Information
--- OUTSIDE RECORDS SUMMARY | 2024-09-21 01:16 | XMS_ITS | Clinical Summary ---
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 Oncology has released follow [...] OS. 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 S/p EPR 2009. [...] manifestation of radiation retinopathy. Vision remains stable. Encounters Date Type Department Care Team Description 09/17/2024 2:00 PM CDT Office Visit [facility] Ophthalmology [address] [place] [address] Sonal Anderson MD Choroidal malignant melanoma, left (HCC) (Primary Dx) 07/01/[address] 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 Family History Medical History Relation Name Comments Cancer Father Cancer Sister Glaucoma Neg Hx Macular degeneration Neg Hx Relation Name Status Comments Father Sister Social History Tobacco Use Types Packs/Day Years Used Date Smoking Tobacco: Never Smokeless Tobacco: Never Sex and Gender Information Value Date Recorded Sex Assigned at Not on file Legal 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 Gender Identity Not on file Sexual Orientation Not on file Obstetrics History Last Filed Vital Signs Vital Sign Reading [...] 05/28/2022 8:48 AM CDT Plan of Treatment Health Maintenance Due Date Last Done Comments Colon Cancer Screening-Colonoscopy 1958 Depression Screening 1958 Fall Risk Assessment 1958 Hepatitis C Screening 1958 Prostate Cancer Screening-PSA 1958 DTaP/Tdap/Td Vaccine (1 - Tdap) 1969 Hepatitis B Screening 1976 Pneumococcal vaccine 65+ (1 of 1 - PCV) 2008 Zoster Vaccine (1 of 2) 2008 Covid-19 Vaccine (2 - season) 11/10/202309/2020 Well Visit 65+ 12/20/2023 Influenza Vaccine (#1) 2024 Procedures Procedure Name Priority Date/Time Associated Diagnosis [...] has been stable. Notes CMT OS, stable.. Liz Juarez MD OPHTH PHOTOGRAPHY F inal Result from Last 3 Months Insurance [employer] Care Teams Electronic Equipment Repairmen Relationship Specialty Start Date End Date Roibn Srivastava MD [facility] [place] [address] PCP - General 04/19/20
--- OUTSIDE RECORDS SUMMARY | 2024-09-21 01:16 | XMS_ITS | Patient Health Record ---
Author Organization [facility] Address [address] [facility] [address] [place] [address] Support Name Relationship Address Phone [employer] Guarantor Unknown Unavailable Reason For Referral No Information Plan Of Treatment No Information
--- NOTE | 2024-09-21 08:01 | P.PNAN_ITS ---
Anes - Initial Pre Proc Eval Procedure: Operation Date: 09/21/24 09:30 Proposed Procedures p Screening Colonoscopy - Samuel Jacques MD Date/Time: 09/21/24 08:01 Surgeon: Samuel Jacques MD Pre Op Diagnosis: screening Patient Data Age: 63 Gender: M Height: 1.8 m Weight: 90 kg Allergies Allergy/AdvReac Type Severity Reaction Status Date / Time No Known Allergies Allergy Verified 09/21/24 08:12 Home Medications ?Medication ?Instructions ?Recorded ?Confirmed ?Type cyclobenzaprine 10 mg tablet 10 mg PO TID PRN muscle spasm #20 11/02/19 09/07/24 Rx tabs prednisone 20 mg tablet 40 mg PO DAILY PRN back pain 09/07/24 09/07/24 History Patient hx anesthesia problems: none Family hx anesthesia problems: none Results Review: All pre-operative results and documents have been reviewed as part of the pre- operative evaluation. [facility] Past Medical History Medical History (Updated 09/21/24 @ 08:37 by Samuel Jacques MD) Colon polyp Ocular melanoma Left No pertinent past medical history Surgical History Surgical History (Updated 11/02/19 @ 04:39 by Kevin Montanez MD) Amputated finger Social History Social History (Updated 11/02/19 @ 04:39 by Kevin Montanez MD) Smoking status: Never smoker Alcohol intake: current Drinks per week: 7 Living arrangements: alone Gender identity (if verbalized by the patient): Male Spiritual care concerns: No Anes - Eval Final PreProcedure Day of Procedure 09/21/24 08:01 Patient weight: overweight Heart: regular rate and rhythm Lungs: clear to auscultation Airway: Mallampati scale class II Neurological: alert and oriented Last oral intake: >/= 8 hours ASA classification: III Emergent: no Anesthetic plan: proceed Anesthesia type and monitoring: general GIVS and standard monitoring Results Review: All pre-operative results and documents have been reviewed as part of the pre- operative evaluation. Informed Consent: The patient's anesthetic plan and its attendant risks and benefits were discussed with the patient/family/POA. Questions were solicited and answers provided to the satisfaction of the patient/family/POA.
[2024-09-21 08:13] VITALS: BP 131/90; PULSE 50; RESP 16; TEMP 36.6; O2SAT 99
[2024-09-21] MEDS: LACTATED RINGERS 1,000 ML 150 ML IV CONT (08:23)
--- NOTE | 2024-09-21 08:37 | PM.HPGS ---
History of Present Illness History of Present Illness Consent: Risks, benefits, and alternatives have been discussed and questions answered. Patient agrees to proceed with procedure. Chief complaint: screening Narrative: Tripp Campos is a 63 year old male with colon polyp 6 years ago Review of Systems Review of Systems: All systems reviewed & are unremarkable except as noted in HPI and below PMFSH Past Medical History Medical History (Updated 09/21/24 @ 08:37 by Samuel Jacques MD) Colon polyp Ocular melanoma Left No pertinent past medical history Surgical History Surgical History (Updated 11/02/19 @ 04:39 by Kevin Montanez MD) Amputated finger Social History Social History (Updated 11/02/19 @ 04:39 by Kevin Montanez MD) Smoking status: Never smoker Alcohol intake: current Drinks per week: 7 Living arrangements: alone Gender identity (if verbalized by the patient): Male Spiritual care concerns: No Meds Home Medications and Allergies Home Medications ?Medication ?Instructions ?Recorded ?Confirmed ?Type cyclobenzaprine 10 mg tablet 10 mg PO TID PRN muscle spasm #20 11/02/19 09/07/24 Rx tabs prednisone 20 mg tablet 40 mg PO DAILY PRN back pain 09/07/24 09/07/24 History Allergies Allergy/AdvReac Type Severity Reaction Status Date / Time No Known Allergies Allergy Verified 09/21/24 08:12 Vital Signs Vital Signs - 24 hr 09/21/24 08:13 Temperature 97.8 F Pulse Rate 50 L Respiratory Rate 16 Blood Pressure 131/90 Pulse Oximetry 99 Oxygen Delivery Room Air Exam Const: General: comfortable and no acute distress HENMT: Face/Nose/Sinus: Normal nares present Eyes: General: appearance normal, both eyes and all related structures Neck: Neck: no JVD Resp: Auscultation: clear to auscultation bilaterally Cardio: Rate: regular rate Rhythm: regular rhythm GI: Inspection: non-distended GI Palp: Yes Soft to palpation Skin: General skin exam: normal color Neuro: Speech: normal speech Extrem: General: normal to inspection Psych: Mental Status: mental status grossly normal Assessment and Plan Assessment and plan (1) Colon polyp: Code(s): K63.5 - Polyp of colon Status: Acute Assessment and Plan: colonoscopy
[2024-09-21 08:56] VITALS: BP 100/64; PULSE 52; RESP 21; O2SAT 98
[2024-09-21 09:06] VITALS: BP 94/69; PULSE 50; RESP 16; O2SAT 98
[2024-09-21 09:16] VITALS: BP 116/74; PULSE 56; RESP 19; O2SAT 98
== END 2024-09-21 09:27 | disposition home or self-care (01) ==
PROVIDERS: PCP Emergency Medicine; Referring Provider Emergency Medicine; Visit Provider Internal Medicine Gastroenterology
PROC: 0DJD8ZZ Inspection of Lower Intestinal Tract, Via Natural or Artificial Opening Endoscopic (ICD-10-PCS; CPT 45378; principal; 2024-09-21 09:30)
DX: Z12.11 Encounter for screening for malignant neoplasm of colon (principal); K64.8 Other hemorrhoids; Z79.52 Long term (current) use of systemic steroids; Z98.890 Other specified postprocedural states; Z86.0100 Personal history of colon polyps, unspecified; Z85.840 Personal history of malignant neoplasm of eye
CPT/HCPCS: 45378; J2704; J7120